=== PATIENT | female | born 1955 ===

== ENCOUNTER 2024-03-04 05:30 | Day surgery (SDC) | payer OTHER ==
[2024-03-03 13:03] VITALS: BP 129/84
[~2024-03-04] VITALS: Ht 162.6 cm; Wt 97.1 kg
[~2024-03-04 05:30] MED LIST: CARVEDILOL6.25 MG; CHILDREN'S ASPI81 MG PO; HORIZANT300 MG PO; HYDRODIURIL12.5 MG PO; NORVASC5 MG PO; PROTONIX40 MG PO; RESTORIL30 M1 PO; ROSUVASTATIN CA20 MG PO; SYNTHROID150 MCG PO; ZOLOFT100 MG PO
[2024-03-04] MEDS ORDERED: MORPHINE SULFATE 4 MG/ML VIAL IV ONE ×3 (09:30→10:10)
[2024-03-06] MEDS ORDERED: CEFAZOLIN SODIUM 1,000 MG VIAL IV ONE (19:30)
[2024-03-06] MEDS ORDERED: BACITRACIN 28.35 GM OINT.TUBE TOP ONE (19:45)
[2024-03-06] MEDS ORDERED: LIDOCAINE HCL 1%/EPINEPHRINE 20ML VIAL IJ ONE (19:45)
[2024-03-06] MEDS ORDERED: TRIAMCINOLONE ACETONIDE 40 MG/ML VIAL IJ ONE (19:45)
== END 2024-03-04 11:10 | disposition home or self-care (01) ==
LOC: CIR.AMB 05:30
PROVIDERS: ATTEND Surgery Surgery of the Hand
DX: M65.841 Other synovitis and tenosynovitis, right hand (principal); M65.4 Radial styloid tenosynovitis [de Quervain]; I10 Essential (primary) hypertension